=== PATIENT | female | born 1965 | race Caucasian/White ===

== ENCOUNTER 2021-04-07 11:48 | Outpatient (CLI) | payer MEDICARE ==
[2021-04-07 23:20] LABS: SARS-CoV-2 PCR by NAA Not Detected (NotDetected)
== END 2021-04-07 11:49 | disposition home or self-care (01) ==
LOC: CSHLAB 11:48
PROVIDERS: ATTEND Internal Medicine Critical Care Medicine
DX: Z01.812 Encounter for preprocedural laboratory examination (principal); Z20.822 Contact with and (suspected) exposure to COVID-19
CPT/HCPCS: U0003; U0005

== ENCOUNTER 2021-04-11 07:14 | Outpatient (CLI) | payer MEDICARE | END 2021-04-11 07:15 | disposition home or self-care (01) | LOC: CSHCP 07:14 | PROVIDERS: ATTEND Internal Medicine Critical Care Medicine | DX: J45.909 Unspecified asthma, uncomplicated (principal) | CPT/HCPCS: 94060; 94726; 94729; 94760 ==